=== PATIENT | female | born 1960 | race Caucasian/White ===

== ENCOUNTER 2017-07-10 05:36 | Emergency (ER) | payer MEDICAID ==
[~2017-07-10] VITALS: Ht 165.1 cm; Wt 90.0 kg
[2017-07-10] MEDS ORDERED: DIAZEPAM 5 MG TABLET ONE (06:06)
[2017-07-10] MEDS ORDERED: KETOROLAC 30 MG/1 ML ONE (06:06)
[2017-07-10] MEDS ORDERED: PROMETHAZINE 25 MG/ML, 1ML ONE (06:07)
[2017-07-10] MEDS ORDERED: PROMETHAZINE 25 MG/ML, 1ML IM ONE (06:30)
[2017-07-10] MEDS ORDERED: KETOROLAC 30 MG/1 ML IM ONE (06:30)
[2017-07-10] MEDS ORDERED: DIAZEPAM 5 MG TABLET PO ONE (06:30)
[2017-07-10 07:37] VITALS: BP 111/76
== END 2017-07-10 08:03 | disposition home or self-care (01) ==
LOC: ED 05:49
DX: M50.30 Other cervical disc degeneration, unspecified cervical region (principal); G24.3 Spasmodic torticollis; M06.9 Rheumatoid arthritis, unspecified; F17.200 Nicotine dependence, unspecified, uncomplicated
CPT/HCPCS: 72125; 96372; 99284; J1885; J2550

== ENCOUNTER 2017-09-07 15:52 | Emergency (ER) | payer MEDICAID ==
[~2017-09-07] VITALS: Ht 165.1 cm; Wt 90.0 kg
[2017-09-07 16:26] LABS: MICROSCOPIC AUTO
[2017-09-07 16:27] LABS: CULTURE INDICATED? YES
[2017-09-07] MEDS ORDERED: KETOROLAC 30 MG/1 ML IVPush ONE (16:30)
[2017-09-07] MEDS ORDERED: MORPHINE SULFATE 4 MG/ML, 1ML ONE ×2 (16:36→18:07)
[2017-09-07] MEDS ORDERED: KETOROLAC 30 MG/1 ML ONE (16:36)
[2017-09-07] MEDS: MORPHINE SULFATE 4 MG/ML, 1ML IVPush PRN ×2 (16:41→18:10)
[2017-09-07 16:42] LABS: BASOPHILS # (AUTO) 0.03 x10^3/uL (0-0.1); BASOPHILS % (AUTO) 0 % (0-1); EOSINOPHILS # (AUTO) 0.53 x10^3/uL (0-0.4); EOSINOPHILS % (AUTO) 5 % (1-7); LYMPHOCYTES # (AUTO) 3.16 x10^3/uL (1-3.4); LYMPHOCYTES % (AUTO) 31 % (22-44); MD NO; MEAN CORPUSCULAR HGB CONC 33.5 g/dL (32.4-35.8); MEAN CORPUSCULAR VOLUME 89.3 fL (80-100); MEAN PLATELET VOLUME 8.3 fL (7.4-10.4); MONOCYTES # (AUTO) 0.84 x10^3/uL (0.2-0.8); MONOCYTES % (AUTO) 8 % (2-9); NEUTROPHILS # (AUTO) 5.59 x10^3/uL (1.8-6.8); NEUTROPHILS % (AUTO) 55 % (42-75); PLATELET COUNT 304 x10^3/uL (130-400); RED BLOOD COUNT 4.95 x10^6/uL (3.82-5.3); RED CELL DISTRIBUTION WIDTH 12.9 % (9.6-15.2)
[2017-09-07 16:50] LABS: ALBUMIN 3.7 g/dL (3.4-5.0); ANION GAP 6 mmol/L (5-15); CALCIUM 8.6 mg/dL (8.5-10.1); CHLORIDE 110 mmol/L (98-107); CREATININE 0.73 mg/dL (0.55-1.02)
[2017-09-07] MEDS ORDERED: SODIUM CHLORIDE FLUSH 10ML SYR IVF ONE (17:30)
[2017-09-07] MEDS ORDERED: ONDANSETRON ODT 4 MG PO ONE (18:00)
[2017-09-07] MEDS ORDERED: ONDANSETRON ODT 8 MG ONE (18:07)
[2017-09-07 19:07] VITALS: BP 110/70
[2017-09-07] MEDS ORDERED: OMNIPAQUE 350 MG/ML, 100ML BOTTLE ONE (20:16)
== END 2017-09-07 19:13 | disposition home or self-care (01) ==
LOC: ED 16:16
DX: R07.89 Other chest pain (principal); J20.8 Acute bronchitis due to other specified organisms; B96.89 Other specified bacterial agents as the cause of diseases classified elsewhere; M06.9 Rheumatoid arthritis, unspecified; R82.99 Other abnormal findings in urine
CPT/HCPCS: 36415; 71101; 71275; 80048; 81001; 82040; 85025; 85379; 87086; 93005; 96374; 96375; 96376; 99285; J1885; Q0162; Q9967

== ENCOUNTER 2017-10-13 23:12 | Emergency (ER) | payer MEDICAID ==
[~2017-10-13] VITALS: Ht 165.1 cm; Wt 100.0 kg
[2017-10-14] MEDS ORDERED: MORPHINE SULFATE 4 MG/ML, 1ML IVPush PRN
[2017-10-14 00:50] LABS: BASOPHILS # (AUTO) 0.01 x10^3/uL (0-0.1); BASOPHILS % (AUTO) 0 % (0-1); EOSINOPHILS # (AUTO) 0.39 x10^3/uL (0-0.4); EOSINOPHILS % (AUTO) 4 % (1-7); LYMPHOCYTES # (AUTO) 2.28 x10^3/uL (1-3.4); LYMPHOCYTES % (AUTO) 21 % (22-44); MD NO; MEAN CORPUSCULAR HGB CONC 33.6 g/dL (32.4-35.8); MEAN CORPUSCULAR VOLUME 89.4 fL (80-100); MEAN PLATELET VOLUME 8.7 fL (7.4-10.4); MONOCYTES # (AUTO) 0.85 x10^3/uL (0.2-0.8); MONOCYTES % (AUTO) 8 % (2-9); NEUTROPHILS # (AUTO) 7.27 x10^3/uL (1.8-6.8); NEUTROPHILS % (AUTO) 67 % (42-75); PLATELET COUNT 270 x10^3/uL (130-400); RED BLOOD COUNT 5.19 x10^6/uL (3.82-5.3); RED CELL DISTRIBUTION WIDTH 13.9 % (9.6-15.2)
[2017-10-14] MEDS ORDERED: MORPHINE SULFATE 4 MG/ML, 1ML ONE (00:52)
[2017-10-14] MEDS ORDERED: ONDANSETRON ODT 4 MG ONE (00:57)
[2017-10-14 00:59] LABS: ALBUMIN 3.7 g/dL (3.4-5.0); ANION GAP 8 mmol/L (5-15); CALCIUM 9.2 mg/dL (8.5-10.1); CHLORIDE 107 mmol/L (98-107); CREATININE 0.81 mg/dL (0.55-1.02)
[2017-10-14] MEDS ORDERED: ONDANSETRON ODT 4 MG PO ONE (01:00)
[2017-10-14 01:03] LABS: TROPONIN I < 0.015 ng/mL (0.000-0.045)
[2017-10-14 01:08] LABS: MICROSCOPIC NOT IND
[2017-10-14 01:14] LABS: CULTURE INDICATED? NO
[2017-10-14] MEDS ORDERED: METHOCARBAMOL 750 MG TABLET ONE (02:18)
[2017-10-14] MEDS ORDERED: METHOCARBAMOL 750 MG TABLET PO ONE (02:30)
[2017-10-14 02:45] VITALS: BP 116/74
== END 2017-10-14 02:48 | disposition home or self-care (01) ==
LOC: ED 23:59
DX: R07.89 Other chest pain (principal); M19.90 Unspecified osteoarthritis, unspecified site; F17.200 Nicotine dependence, unspecified, uncomplicated
CPT/HCPCS: 36415; 71045; 80048; 81003; 82040; 84484; 85025; 93005; 96374; 99285; Q0162

== ENCOUNTER 2017-12-04 17:05 | Emergency (ER) | payer MEDICAID ==
[~2017-12-04] VITALS: Ht 165.1 cm; Wt 102.5 kg
[2017-12-04] MEDS ORDERED: METH500T97 PO (18:13)
[2017-12-04] MEDS ORDERED: IBUP-1223 PO (18:13)
[2017-12-04] MEDS ORDERED: KETOROLAC 30 MG/1 ML ONE (18:28)
[2017-12-04] MEDS ORDERED: DIPHENHYDRAMINE 25 MG CAPSULE ONE (18:28)
[2017-12-04] MEDS ORDERED: METOCLOPRAMIDE 10MG TABLET ONE (18:28)
[2017-12-04] MEDS ORDERED: METOCLOPRAMIDE 10MG TABLET PO ONE (18:30)
[2017-12-04] MEDS ORDERED: DIPHENHYDRAMINE 25 MG CAPSULE PO ONE (18:30)
[2017-12-04] MEDS ORDERED: KETOROLAC 30 MG/1 ML IM ONE (18:30)
[2017-12-04] MEDS ORDERED: DEXAMETHASONE 4 MG TABLET PO ONE (19:00)
[2017-12-04] MEDS ORDERED: DEXAMETHASONE 4 MG TABLET ONE (19:12)
[2017-12-04 19:19] VITALS: BP 118/78
== END 2017-12-04 19:50 | disposition home or self-care (01) ==
LOC: ED 19:44
DX: G43.101 Migraine with aura, not intractable, with status migrainosus (principal); F17.200 Nicotine dependence, unspecified, uncomplicated
CPT/HCPCS: 96372; 99284; J1885; Q0163

== ENCOUNTER 2019-09-27 21:29 | Inpatient (IN) | payer MEDICAID ==
[~2019-09-27] VITALS: Ht 165.1 cm; Wt 96.1 kg
[~2019-09-27 21:29] MED LIST: IBUP-1223 PO; METH500T97 PO
[2019-09-27] MEDS ORDERED: methylPREDNISolone SOD SUCC 125 MG/2 ML ONE (21:46)
[2019-09-27] MEDS ORDERED: ACETAMINOPHEN 325 MG TABLET ONE (21:46)
[2019-09-27] MEDS ORDERED: KETOROLAC 30 MG/1 ML ONE (21:46)
[2019-09-27] MEDS ORDERED: ALBUTEROL/IPRATROPIUM 2.5MG/0.5MG, 3 ML ONE (21:46)
[2019-09-27] MEDS ORDERED: SODIUM CHLORIDE FLUSH 10ML SYR IVF ONE (22:00)
[2019-09-27] MEDS ORDERED: methylPREDNISolone SOD SUCC 125 MG/2 ML IV ONE (22:00)
[2019-09-27] MEDS ORDERED: KETOROLAC 30 MG/1 ML IVPush ONE (22:00)
[2019-09-27] MEDS ORDERED: ACETAMINOPHEN 325 MG TABLET PO ONE (22:00)
[2019-09-27] MEDS ORDERED: SODIUM CHLORIDE 0.9% 1,000ML IVBOLUS ONE (22:00)
[2019-09-27] MEDS ORDERED: ALBUTEROL/IPRATROPIUM 2.5MG/0.5MG, 3 ML NPPB ONE (22:00)
[2019-09-27 22:04] LABS: RAPID INFLUENZA A Negative (Negative); RAPID INFLUENZA B Negative (Negative)
--- NOTE | 2019-09-27 22:05 | NUR ---
THIS IS A 59Y F BIB EMS FROM HOME FOR CP AND SOB X2DAYS. PT REPORTS INC SOB AND COUGH X2DAYS. PT STS SHE SMOKES A PACK A DAY STILL. PT REPORTS DAUGHTER TOLD HER SHE HAS A FEVER. PT CONNECTED TO ALL MONITORING. PT MEDICATED PER AUG.
[2019-09-27 22:22] LABS: MEAN CORPUSCULAR HEMOGLOBIN 29.6 pg (27.0-34.8); MEAN CORPUSCULAR HGB CONC 33.2 g/dL (32.4-35.8); MEAN CORPUSCULAR VOLUME 89.1 fL (80-100); MEAN PLATELET VOLUME 7.6 fL (7.4-10.4); PLATELET COUNT 286 x10^3/uL (130-400); RED BLOOD COUNT 4.24 x10^6/uL (3.82-5.3); RED CELL DISTRIBUTION WIDTH 13.5 % (9.6-15.2)
[2019-09-27 22:30] LABS: ALBUMIN 2.9 g/dL (3.4-5.0); ANION GAP 7 mmol/L (5-15); CALCIUM 8.4 mg/dL (8.5-10.1); CHLORIDE 92 mmol/L (98-107)
[2019-09-27 22:36] LABS: ALANINE AMINOTRANSFERASE 26 U/L (12-78); ALKALINE PHOSPHATASE 188 U/L (45-117); BILIRUBIN,TOTAL 0.6 mg/dL (0.2-1.0); CREATININE 0.56 mg/dL (0.55-1.02); TOTAL PROTEIN 6.8 g/dL (6.4-8.2); TROPONIN I < 0.015 ng/mL (0.000-0.045)
[2019-09-27 22:40] LABS: MD YES
[2019-09-27 22:42] LABS: <PLATELET ESTIMATE> ADEQUATE; <RBC MORPHOLOGY> NORMAL; BAND#(MANUAL) 0.86 x10^3/uL; BANDS%(MANUAL) 4 % (0-7); EOS#(MANUAL) 0.22 x10^3/uL (0.0-0.4); EOS% (MANUAL) 1 % (1-7); LYMPH#(MANUAL) 1.73 x10^3/uL (1-3.4); LYMPHS% (MANUAL) 8 % (22-44); MONOS#(MANUAL) 1.94 x10^3/uL (0.3-2.7); MONOS% (MANUAL) 9 % (2-9); REACTIVE LYMPHS # (MANUAL) 0.43 x10^3/uL (0-0); REACTIVE LYMPHS % (MANUAL) 2 % (0-0); SEG#(MANUAL) 16.42 x10^3/uL (1.8-6.8); SEGS% (MANUAL) 76 % (42-75)
[2019-09-27 22:43] LABS: PMNS WITH VACUOLES 1+
[2019-09-27] MEDS ORDERED: CEFTRIAXONE PMX 1GM/50ML 50 ML ONE (22:43)
[2019-09-27 22:44] LABS: LARGE PLATELETS 1+
--- NOTE | 2019-09-27 22:48 | NUR ---
ABX STARTED, CULTURES DRAWN X23 PRIOR TO START. PT RESTING ON GURNEY, PT TOLERATED DUONEB TX WELL AND BREATHING RATE HAS REGULATED ACCORDINGLY.
[2019-09-27] MEDS ORDERED: POTASSIUM CHLORIDE 20 MEQ TAB.ER.PRT ONE (22:57)
--- NOTE | 2019-09-27 22:59 | NUR ---
PT MEDICATED PER SHOSHANA RUBALCAVA, PT EDUCATED TO KEEP MASK ON AND COVER COUGH, PT CONTINES TO COUGH WITHOUT PULLING MASK UP.
[2019-09-27] MEDS ORDERED: CEFTRIAXONE PMX 1GM/50ML 50 ML IVPB ONE (23:00)
[2019-09-27] MEDS ORDERED: AZITHROMYCIN 500 MG in SODIUM CHLORIDE 0.9% 250 ML IVPB ONE (23:00)
[2019-09-27] MEDS ORDERED: POTASSIUM CHLORIDE 20 MEQ TAB.ER.PRT PO ONE (23:00)
--- NOTE | 2019-09-27 23:11 | NUR ---
SPOKE WITH PT DAUGHTER UPDATED THAT PT TO BE ADMITTED.
--- NOTE | 2019-09-27 23:19 | NUR ---
PA AT BEDSIDE TO ASSESS PT
[2019-09-28] MEDS ORDERED: ACETAMINOPHEN 325 MG TABLET PO PRN
[2019-09-28] MEDS ORDERED: DOCUSATE 100 MG CAPSULE PO PRN
[2019-09-28] MEDS ORDERED: BISACODYL 10 MG SUPP PR PRN
[2019-09-28] MEDS ORDERED: POLYETHYLENE GLYCOL 17 GM PACKET PO PRN
[2019-09-28] MEDS ORDERED: AZITHROMYCIN 500 MG in SODIUM CHLORIDE 0.9% 250 ML IV SCH
--- NOTE | 2019-09-28 00:05 | NUR ---
REPORT TO SHERIN GARCIA, PT READY TO BE TRANSFERED TO HOSPITAL ROOM.
[2019-09-28 00:09] LABS: HCT (SEDRATE) 37.3 % (34.6-47.8)
[2019-09-28] MEDS: SODIUM CHLORIDE 0.9% 1,000 ML IV SCH ×2 (01:04→09:18)
[2019-09-28] MEDS: HEPARIN 5,000 UNITS/ML, 1ML SQ SCH ×3 (01:04→17:02)
[2019-09-28] MEDS: HYDROcodone/APAP 5/325 TABLET PO PRN ×3 (01:18→13:28)
[2019-09-28 01:24] VITALS: BP 119/70
[2019-09-28] MEDS ORDERED: BENZONATATE 100 MG CAPSULE PO PRN (02:08)
[2019-09-28 04:01] LABS: MICROSCOPIC NOT IND
[2019-09-28 04:02] LABS: CULTURE INDICATED? NO
[2019-09-28 06:26] LABS: ALANINE AMINOTRANSFERASE 27 U/L (12-78); ALBUMIN 2.7 g/dL (3.4-5.0); ANION GAP 10 mmol/L (5-15); CALCIUM 8.4 mg/dL (8.5-10.1); CHLORIDE 97 mmol/L (98-107); CREATININE 0.85 mg/dL (0.55-1.02)
[2019-09-28 06:37] LABS: ALKALINE PHOSPHATASE 177 U/L (45-117); BILIRUBIN,TOTAL 0.3 mg/dL (0.2-1.0); TOTAL PROTEIN 6.7 g/dL (6.4-8.2)
[2019-09-28 06:39] LABS: MEAN CORPUSCULAR HEMOGLOBIN 29.9 pg (27.0-34.8); MEAN CORPUSCULAR HGB CONC 32.9 g/dL (32.4-35.8); MEAN CORPUSCULAR VOLUME 90.9 fL (80-100); MEAN PLATELET VOLUME 7.9 fL (7.4-10.4); PLATELET COUNT 249 x10^3/uL (130-400); RED BLOOD COUNT 4.19 x10^6/uL (3.82-5.3); RED CELL DISTRIBUTION WIDTH 13.2 % (9.6-15.2)
[2019-09-28 07:41] LABS: MD YES
[2019-09-28 07:43] LABS: BAND#(MANUAL) 0.69 x10^3/uL; BANDS%(MANUAL) 5 % (0-7); LYMPHS% (MANUAL) 8 % (22-44)
[2019-09-28 07:44] LABS: MONOS#(MANUAL) 0.27 x10^3/uL (0.3-2.7); MONOS% (MANUAL) 2 % (2-9)
[2019-09-28 07:45] LABS: SEGS% (MANUAL) 85 % (42-75)
[2019-09-28 07:48] LABS: <PLATELET ESTIMATE> ADEQUATE; <PLT MORPHOLOGY> NORMAL PLT MORPH; <RBC MORPHOLOGY> NORMAL
[2019-09-28] MEDS ORDERED: POTASSIUM CHLORIDE 20 MEQ TAB.ER.PRT PO ONE (08:00)
[2019-09-28 08:36] VITALS: BP 127/77
[2019-09-28 12:25] VITALS: BP 132/92
[2019-09-28] MEDS ORDERED: AZIT500T PO (14:36)
[2019-09-28] MEDS ORDERED: CEFD300C37 PO (14:36)
[2019-09-28] MEDS ORDERED: CEFTRIAXONE PMX 1GM/50ML 50 ML IV SCH (23:00)
== END 2019-09-28 17:14 | disposition home or self-care (01) | DRG 871 ==
LOC: ED 21:39 → EDIP 22:50 → 3E 09-28 00:19
PROVIDERS: ADMIT Family Medicine; ATTEND Internal Medicine
DX: A41.9 Sepsis, unspecified organism (principal); J15.9 Unspecified bacterial pneumonia; J96.01 Acute respiratory failure with hypoxia; J44.0 Chronic obstructive pulmonary disease with (acute) lower respiratory infection; J44.1 Chronic obstructive pulmonary disease with (acute) exacerbation; E87.1 Hypo-osmolality and hyponatremia; F17.200 Nicotine dependence, unspecified, uncomplicated; F15.90 Other stimulant use, unspecified, uncomplicated; E87.6 Hypokalemia; M06.9 Rheumatoid arthritis, unspecified; Z90.710 Acquired absence of both cervix and uterus; D72.810 Lymphocytopenia; Z20.828 Contact with and (suspected) exposure to other viral communicable diseases
CPT/HCPCS: 36415; 71045; 80053; 81003; 83605; 83735; 83880; 84100; 84145; 84443; 84484; 85025; 85379; 85651; 87040; 87400; 93005; J0456; J0696; J1644; J1885; J2930; J7030; J7050; U0001